=== PATIENT | female | born 2000 | race Caucasian/White ===

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

== ENCOUNTER 2022-12-23 18:28 | Emergency (ER) | payer OTHER, SELFPAY ==
[2022-12-23 19:41] VITALS: BP 130/67; PULSE 84; RESP 16; TEMP 36.9; O2SAT 95; BMI 24.9
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
== END 2022-12-23 19:54 | disposition home or self-care (01) ==
LOC: HO.ED 19:54
PROVIDERS: Emergency Provider Internal Medicine
DX: T24.011A Burn of unspecified degree of right thigh, initial encounter (principal); T22.031A Burn of unspecified degree of right upper arm, initial encounter; W86.0XXA Exposure to domestic wiring and appliances, initial encounter; Y93.9 Activity, unspecified; Y92.9 Unspecified place or not applicable; Y99.9 Unspecified external cause status
CPT/HCPCS: 99282; 99283

== ENCOUNTER 2023-08-24 13:28 | Emergency (ER) | payer OTHER, SELFPAY ==
--- NOTE | ~2023-08-24 | XR_ITS ---
EXAMINATION:XR ankle RT min 3V, XR foot RT min 3V VIEWS ACQUIRED: Frontal lateral and oblique right foot, 2 views ankle frontal and lateral CLINICAL INFORMATION: Reason for Exam pain s/p fall COMPARISON: None available at the time of this dictation. FINDINGS: There is no evidence of acute fracture or dislocation. Intertarsal, tarsometatarsal, metatarsophalangeal and interphalangeal joints are intact. Surrounding soft tissues is normal. , Ankle mortise is preserved. Talar dome is intact. Soft tissue unremarkable. XR/XR ankle RT min 3V IMPRESSION: No radiographic evidence of acute fracture. No fracture or dislocation.
--- NOTE | ~2023-08-24 | XR_ITS ---
EXAMINATION:XR ankle RT min 3V, XR foot RT min 3V VIEWS ACQUIRED: Frontal lateral and oblique right foot, 2 views ankle frontal and lateral CLINICAL INFORMATION: Reason for Exam pain s/p fall COMPARISON: None available at the time of this dictation. FINDINGS: There is no evidence of acute fracture or dislocation. Intertarsal, tarsometatarsal, metatarsophalangeal and interphalangeal joints are intact. Surrounding soft tissues is normal. , Ankle mortise is preserved. Talar dome is intact. Soft tissue unremarkable. XR/XR foot RT min 3V IMPRESSION: No radiographic evidence of acute fracture. No fracture or dislocation.
[2023-08-24 13:36] VITALS: BP 137/82; PULSE 108; RESP 20; TEMP 36.7; O2SAT 97; BMI 25.7
--- NOTE | 2023-08-24 14:52 | ED_ITS ---
HPI - Extremity Injury (Lower) General Chief Complaint: Extremity Injury, Lower Stated Complaint: R foot inj Time Seen by Provider: 08/24/23 13:41 Source: patient, family and RN notes reviewed Mode of arrival: ambulatory Limitations: no limitations History of Present Illness HPI Narrative: this is a 23-year-old female presenting to the emergency department for evaluation of left ankle and foot pain since last night. Patient states that she tripped and fell down a step outdoors last night. Denies hitting her head or loss of consciousness. She was able to weight bear on her leg. Patient states that this morning she woke up with increased pain and unable to fully apply weight on her right foot secondary to pain. She is up-to-date with all of her vaccines. Denies taking any medications at home to treat occurred symptoms. No other complaints or concerns. MD complaint: ankle injury, foot injury and fall Onset (ago): day(s) Place: home Severity: moderate Relieving factors: nothing Exacerbating factors: nothing Context: fall Associated symptoms: able to partially bear weight Other symptoms: none Related Data Previous Rx's Medication Instructions Recorded bacitracin zinc 500 unit/gram 1 appl topical TID #14 grams 12/23/22 topical ointment (Antibiotic (bacitracin zinc)) cephalexin 250 mg capsule 250 mg PO QID 5 days #20 caps 08/24/23 ibuprofen 600 mg tablet 600 mg PO Q6H PRN fever or pain 08/24/23 #45 tabs Allergies Allergy/AdvReac Type Severity Reaction Status Date / Time No Known Allergies Allergy Unverified 06/22/20 17:01 Review of Systems Review of Systems: Yes all other systems are reviewed and are negative [facility] Past Medical History Attestation statement: The following information was validated with the patient. Social History Social History Advance Directives: No Advance Directives Information Provided: No Physical Exam Vital Signs: Vital Signs: Last Vital Signs Temp 98.0 F 08/24/23 13:36 Pulse 108 H 08/24/23 13:36 Resp 20 08/24/23 13:36 BP 137/82 08/24/23 13:36 Pulse Ox 97 08/24/23 13:36 O2 Del Method Room Air 08/24/23 13:36 BMI result Body Mass Index 25.7 Const: Other: General: Awake, alert, and oriented X3. No acute distress. HEENT: Normal inspection CVS: Normal heart rate and rhythm. Pulses normal. Respiratory: No respiratory distress Skin: Warm, dry, no rashes noted to exposed skin. Normal skin color. Normal skin turgor. Extremities: Right ankle with tenderness to palpation along the posterior ankle. no tenderness palpation along the lateral or medial mallelous. DP pulse 2 + capillary refill less than 2 seconds. there is a 3 cm laceration with dried blood noted. no surrounding erythema or warmth. Achilles tendon intact. Neuro: Oriented X 3. No motor deficit. No sensory deficit. Course Reevaluation(s) Reevaluation #1: X-rays negative for acute bony abnormalities. Wound cleansed with Betadine and saline. Time: 15:49 Reevaluation #2: wound cleansed with 7 4-0 nylon sutures. Patient tolerated procedure well, see procedure note for further detail. Patient given 1st dose of antibiotic in department. Patient given crutches and given return precautions. Patient stable for discharge. Time: 20:01 Medications Administered Discontinued Medications Generic Name Dose Route Start Last Admin Trade Name Freq PRN Reason Stop Dose Admin Bacitracin 1 appl 08/24/23 19:33 08/24/23 19:38 Bacitracin Oint 0.9 Gm Packet TOPICAL 08/24/23 19:34 1 appl ONCE ONE Administration Protocol Cephalexin HCl 250 mg 08/24/23 19:33 08/24/23 19:38 Cephalexin 250 Mg Capsule PO 08/24/23 19:34 250 mg ONCE ONE Administration Ibuprofen 600 mg 08/24/23 14:41 08/24/23 14:53 Ibuprofen 600 Mg Tablet PO 08/24/23 14:42 600 mg ONCE ONE Administration Lidocaine HCl 5 ml 08/24/23 16:17 08/24/23 16:29 Lidocaine Hcl 1 % Mpf 5 Ml Vial INFILTRATI 08/24/23 16:18 Not Given ONCE ONE Medical Decision Making Medical Decision Making MDM Narrative: 23-year-old female presenting to the emergency department for evaluation of right ankle and right foot pain since last night. On arrival, vital signs within normal limits. Patient with tenderness palpation along the posterior aspect of her right ankle. X-rays of the right foot and ankle ordered. Patient medicated with ibuprofen 600 mg by mouth p.o. Differential Diagnosis Differential Diagnoses: The differential diagnosis associated with the presentation includes strain, sprain, contusion, fx, laceration Radiology Impression Discussion of test interpretation with radiology: I have reviewed the radiologist's reading. Radiologist Impression: [id number] [place] [id number] XRay Report Signed Patient: Brigitte Goss MR#: [id number] : 2000 Acct:[id number] Age/Sex: 23 / F ADM Date: 08/24/23 Loc: HO.ED Attending Dr: Ordering Physician: Sparkle Cam Date of Service: 08/24/23 Procedure(s): XR foot RT min 3V Accession Number(s): [id number] cc: Sparkle Cam; Physician,None ~ EXAMINATION:XR ankle RT min 3V, XR foot RT min 3V VIEWS ACQUIRED: Frontal lateral and oblique right foot, 2 views ankle frontal and lateral CLINICAL INFORMATION: Reason for Exam pain s/p fall COMPARISON: None available at the time of this dictation. FINDINGS: There is no evidence of acute fracture or dislocation. Intertarsal, tarsometatarsal, metatarsophalangeal and interphalangeal joints are intact. Surrounding soft tissues is normal. , Ankle mortise is preserved. Talar dome is intact. Soft tissue unremarkable. XR/XR foot RT min 3V IMPRESSION: No radiographic evidence of acute fracture. No fracture or dislocation. Dictated By: Graeme Tadeo MD Procedures Laceration Laceration 1: Site: lower extremity Side (If applicable): right Size (cm): 3 Description: linear and irregular Depth: simple, single layer Local Anesthetic: lidocaine 1% Amount of anesthesia used (mL): 4 Pre-repair: wound explored, irrigated extensively and deep structures intact Skin layer closed with: nylon Size (cm): 4-0 Number of sutures: 7 Technique: simple, interrupted Discharge Plan Discharge Clinical Impression: Ankle sprain, Laceration of ankle Patient Disposition: Home, Self-Care Instructions: Ankle Sprain (ED) Additional Instructions: You were seen in the emergency department after injuring your ankle and foot. your x-rays did not show any broken bones. We had placed 7 sutures in your heel. Please have these removed in 8-10 days. Please take prescribed antibiotic to prevent infection. Finish the entire course. You may get wound wet, do not submerge wound (bathing, hot tubs, pools) until wound is fully closed. Rest, ice, elevate your ankle and foot for pain relief. Watch for any signs of infection - increased redness, fevers, drainage. If any of these occur, please return for re-evaluation. Prescriptions: New cephalexin 250 mg capsule 250 mg PO QID 5 Days Qty: 20 0RF ibuprofen 600 mg tablet 600 mg PO Q6H PRN (Reason: fever or pain) Qty: 45 0RF No Action bacitracin zinc [Antibiotic (bacitracin zinc)] 500 unit/gram ointment 1 appl topical TID Qty: 14 0RF Stand Alone Forms: Work/School Release Interventions: ED Discharge Assessment Last Done: 08/24/23 19:57 Discharge Date/Time: 08/24/23 19:58
[2023-08-24] MEDS: Ibuprofen 600 MG TABLET PO (14:53)
[2023-08-24] MEDS: cephALEXin 250 MG CAPSULE PO (19:38)
[2023-08-24] MEDS: Bacitracin Oint 0.9 GM PACKET 1 APPL TOPICAL (19:38)
== END 2023-08-24 19:58 | disposition home or self-care (01) ==
PROVIDERS: Emergency Provider Student in an Organized Health Care Education/Training Program
DX: S93.401A Sprain of unspecified ligament of right ankle, initial encounter (principal); S81.811A Laceration without foreign body, right lower leg, initial encounter; W01.0XXA Fall on same level from slipping, tripping and stumbling without subsequent striking against object, initial encounter; Y93.9 Activity, unspecified; Y92.9 Unspecified place or not applicable; Y99.9 Unspecified external cause status
CPT/HCPCS: 12002; 73610; 73630; 99283; 99284

== ENCOUNTER 2023-09-12 06:40 | Emergency (ER) | payer OTHER, SELFPAY ==
--- NOTE | 2023-09-12 06:49 | ED_ITS ---
HPI - General Adult General Chief complaint: Wound/Laceration Stated complaint: stiches needed Time Seen by Provider: 09/12/23 06:49 Source: patient Mode of arrival: ambulatory Limitations: no limitations History of Present Illness HPI narrative: Patient is a 23 year old assigned female at with no reported medical history presenting to the emergency department today for suture removal. Patient states that on the patient had 7 sutures placed in her left ankle and she is here to have them removed. Patient denies any dizziness, lightheadedness, abdominal pain, nausea, vomiting, fever, chills, blurry vision, double vision, loss of vision, chest pain, difficulty breathing, shortness of breath, back pain, night sweats, pain with urination, increased urinary frequency, increased urinary urgency, blood in her urine or stool, syncope or a near syncopal episode, bowel incontinence, bladder incontinence, bowel retention, bladder retention, or any other complaints at this time. Relieving factors: none Exacerbating factors: none Associated symptoms: denies other symptoms Treatments prior to arrival: none Related Data Previous Rx's Medication Instructions Recorded bacitracin zinc 500 unit/gram 1 appl topical TID #14 grams 12/23/22 topical ointment (Antibiotic (bacitracin zinc)) cephalexin 250 mg capsule 250 mg PO QID 5 days #20 caps 08/24/23 ibuprofen 600 mg tablet 600 mg PO Q6H PRN fever or pain 08/24/23 #45 tabs Allergies Allergy/AdvReac Type Severity Reaction Status Date / Time No Known Allergies Allergy Unverified 06/22/20 17:01 Review of Systems Constitutional: Constitutional: Reports no additional constitutional complaints, Denies chills, Denies fever(s) and Denies night sweats Eyes: Eyes: Reports no additional eye complaints, Denies blurry vision, Denies change in vision, Denies diplopia, Denies eye discharge, Denies loss of vision and Denies eye pain ENT: Denies dizziness Cardiovascular: Cardiovascular: Reports no additional cardiovascular complaints, Denies chest pain, Denies lightheadedness, Denies Loss of Consciousness and Denies dyspnea Respiratory: Respiratory: Reports no additional respiratory complaints and Denies dyspnea Gastrointestinal: Gastrointestinal: Reports no additional gastrointestinal complaints, Denies abdominal pain, Denies melena, Denies hematochezia, Denies change in bowel habits and Denies change in stool character Genitourinary: Genitourinary: Denies hematuria, Denies urinary frequency, Denies dysuria, Denies urinary incontinence, Denies urinary hesitancy and Denies urinary urgency Musculoskeletal: Musculoskeletal: Reports no additional musculoskeletal complaints, Denies numbness and Denies tingling Comments: [address] in the left heel Neurologic: Denies dizziness, Denies loss of vision, Denies numbness and Denies tingling Psychiatric: Psychiatric: Reports no additional psychiatric complaints Endocrine: Endocrine: Reports no additional endocrine complaints Hematologic/Lymphatic: Hematologic/Lymphatic: Reports no additional hematologic/lymphatic complaints Allergic/Immunologic: Allergic/Immunologic: Reports no additional allergic/immunologic complaints PMFSH Past Medical History Attestation statement: The following information was validated with the patient. Source: old records reviewed and nursing notes reviewed Social History Social History Advance Directives: No Physical Exam ED Const General: cooperative, no acute distress, alert and awake Nutritional Appearance: well nourished Orientation/consciousness: patient oriented x3 Limitations: no limitations HENMT Head: Yes normal to inspection and Yes atraumatic Ears: hearing grossly normal bilaterally and external ears normal General nose exam: Normal external nose present, no nasal discharge noted and no epistaxis Face and sinus: Yes normal facial exam, No abrasion and No laceration Mouth: Normal oral and palatal mucosa present, no drooling and no muffled voice Eyes General: appearance normal, both eyes and all related structures Periorbital: periorbital findings normal Eyelids: Yes eyelids normal Conjunctivae: conjunctivae normal Pupils: Equal, round and reactive pupils present EOM: EOMs intact bilaterally Neck Neck: Yes normal visual inspection, Yes full ROM and Yes no lymphadenopathy Chest Chest palpation & inspection: normal inspection of the chest Resp Effort & Inspection: normal respiratory effort and able to speak in complete sentences GI Inspection: Yes normal to inspection Neuro General: patient oriented x3 and moves all extremities Cranial nerves: Yes Equal, round and reactive pupils present Cognition (Neuro): normal cognition Motor exam (neuro): 5/5 motor strength present throughout Sensory Exam: Normal double simultaneous stimulation for sensation Coordination: [id number] test normal Extrem Other: [address] in a well healed and closed wound to the left heel General: Yes full ROM and Yes capillary refill normal Psych Appearance: grossly normal Mental Status: mental status grossly normal Affect: normal affect Attitude: cooperative Thought process: Normal thought process present Thought content: Normal thought content present Insight: Good insight present (Psych) Procedures Procedure Narrative Procedure Narrative: 7 sutures removed from the left heel, without incident. Medical Decision Making Medical Decision Making MDM Narrative: Patient is a 23 year old assigned female at with no reported medical history presenting to the emergency department today for suture removal. Patient's physical exam was as noted in the physical exam portion of this note. I explained my physical exam findings to the patient. I answered all questions asked by the patient. I stressed the importance of the patient taking her medication as prescribed. I stressed the importance of the patient following up with her primary care provider. I stressed the importance of the patient returning to the emergency department immediately if her symptoms were to worsen or if she were to develop any dizziness, shortness of breath, difficulty breathing, chest pain, blurry vision, loss of vision, nausea, vomiting, abdominal pain, fever, chills, back pain, or any other complaints. Patient verbalized agreement and understanding with this treatment plan and discharge. Differential Diagnosis Differential Diagnoses: The differential diagnosis associated with the presentation includes Suture removal Discharge Plan Discharge Clinical Impression: Encounter for removal of sutures Patient Disposition: Home, Self-Care Instructions: Stitches Removal (ED) Additional Instructions: Follow up with your primary care provider. Return to the emergency department immediately if you develop any drainage from the wound, redness around the wound, dizziness, shortness of breath, difficulty breathing, chest pain, blurry vision, loss of vision, nausea, vomiting, abdominal pain, fever, chills, back pain, or any other complaints. Prescriptions: No Action bacitracin zinc [Antibiotic (bacitracin zinc)] 500 unit/gram ointment 1 appl topical TID Qty: 14 0RF cephalexin 250 mg capsule 250 mg PO QID 5 Days Qty: 20 0RF ibuprofen 600 mg tablet 600 mg PO Q6H PRN (Reason: fever or pain) Qty: 45 0RF Referrals: [facility] Family [facility] [Provider Group] (Call to establish and follow up with a primary care provider. If you already have a primary care provider, please follow up with them.) [facility], [place] [Provider Group] (Call to establish and follow up with a primary care provider. If you already have a primary care provider, please follow up with them.) [facility] [Provider Group] (Call to establish and follow up with a primary care provider. If you already have a primary care provider, please follow up with them.) Interventions: ED Discharge Assessment Last Done: 09/12/23 07:24 Discharge Date/Time: 09/12/23 07:25 Print Language: French
== END 2023-09-12 07:25 | disposition home or self-care (01) ==
PROVIDERS: Emergency Provider Emergency Medicine
DX: Z48.02 Encounter for removal of sutures (principal)

== ENCOUNTER 2025-09-09 17:17 | Outpatient (REF) | payer OTHER, SELFPAY ==
--- OUTSIDE RECORDS SUMMARY | 2025-09-09 13:00 | XMS_ITS | Encounter Summary ---
Author Organization [employer] Address [address] [facility] [address] [place] [address] Care Team Providers Care Battery Plate Remover Name Role Phone Nieves Vance NP Primary Care Provider [phone] Reason for Referral * Consultation (Routine) - Authorized Specialty Diagnoses / Procedures Referred By Bryan warner Referred To Contact Dental Tire Builder Operator / Dentistry Diagnoses Routine general medical examination at a health care facility Nieves Vance NP [address] [place] [address] Phone: tel: fax: Referral ID Status Reason Start Date Expiration Date Visits Requested Visits Authorized [id number] Authorized Consult and Treat 09/09/2025 09/09/2026 1 1 Reason for Visit * Reason Comments New patient Encounter Details Date Type Department Care Team (Late st Contact Info) Description 09/09/2025 1:00 PM EST Office Visit [facility] [address] [place], [place] [phone] Nieves Vance NP [address] [place], [place] [phone] Routine general medical examination at a health care facility (Primary Dx); BMI 32.0-32.9,adult; Dietary counseling; Exercise counseling; HSV (herpes simplex virus) infection Social History Tobacco Use Types Packs/Day Years Used Date Smoking Tobacco: Some Days Cigarettes Tobacco Cessation:Ready to Q uit: Not Asked; Counseling Given: Not Answered Depression Answer Date Recorded Patient Health Questionnaire-9 Score 9 09/09/2025 Patient Health Questionnaire-9 Score 9 09/09/2025 Last PHQ-9: Questionnaire Data Not on file 1 11/10/2024 Housing Stability Answer Date Recorded What is your housing situation today? I have [employer] 09/09/[address] you li ve. Do you have problems with any of the following? None of the above 09/09/2025 Food Insecurity Answer Date Recorded Within the past 12 months, y ou worried that your food would run out before you got money to buy more: Never True 09/09/2025 Within the past 12 months,th e food you bought just didn't last and you didn't have enough money to get more: Never True 02/2025 Transportation Answer Date Recorded In the past 12 months, has l ack of transportation kept you from medical appts, meetings, work or from getting things needed for daily living? No 09/09/2025 Utilities Answer Date Recorded In the past 12 months, has t he electric, gas, oil or water company threatened to shut off services in your home? No 09/09/2025 Depression Answer Date Recorded Patient Health Questionnaire-2 Score 2 09/09/2025 Internet Access Answer Date Recorded Internet Access Q1 Yes 09/09/2025 Internet Access Q2 Not on file 09/09/2025 Comments Unknown Sex and Gender Information Value Date Recorded Sex Assigned at Female 05/20/2025 10:37 AM EDT Legal Sex Female 1:53 PM EDT Gender Identity Female 05/20/2025 10:37 AM EDT Sexual Orientation Straight 05/20/2025 10 :37 AM EDT documented as of this encounter Last Filed Vital Signs Vital Sign Reading Time Taken Comments Blood Pressure 124/86 09/09/2025 1:14 PM EST Pulse 82 09/09/2025 1:14 PM EST Temperature 36.8 C (98.2 F) 09/09/2025 1:14 PM EST Respiratory Rate 20 09/09/2025 1:14 PM EST Oxygen Saturation 98% 09/09/2025 1:14 PM EST Inhaled Oxygen Concentration - - Weight 86 kg (189 lb 9.6 oz) 09/09/2025 1:14 PM EST Height 162.6 cm (5' 4 ) 09/09/2025 1:14 PM EST Body Mass Index 32.54 09/09/2025 1:14 PM EST documented in this encounter Functional Status * Over the past 2 weeks, how often have you been bothered by any of the following problems? Question Answer Date of Assessment Author Patient Health Questionnaire -2 Score 2 09/09/2025 2:53 PM EST Fei Giordano [place] * Little interest or pleasure in doing things Answer Date of Assessment Author Several days 09/09/2025 2:53 PM EST Fei Giordano MA * Feeling down, depressed, or hopeless Answer Date of Assessment Author Several days 09/09/2025 2:53 PM EST Fei Giordano MA * Trouble falling or staying asleep, or sleeping too much Answer Date of Assessment Author Nearly every day 09/09/2025 2:53 PM EST Fei Giordano MA * Feeling tired or having little energy Answer Date of Assessment Author More than half the days 09/09/2025 2:53 PM EST Fei Blair MA * Poor appetite or overeating Answer Date of Assessment Author Not at all 09/09/2025 2:53 PM EST Fei Giordano MA * Feeling bad about yourself - or that you are a failure or have let yourself or your family down Answer Date of Assessment Author Several days 09/09/2025 2:53 PM EST Fei Giordano MA * Trouble concentrating on things, such as reading the newspaper or watching television Answer Date of Assessment Author Several days 09/09/2025 2:53 PM Fei Tom MA * Moving or speaking so slowly that other people could have noticed? Or the opposite - being so fidgety or restless that you have been moving around a lot more than usual. Answer Date of Assessment Author Not at all 09/09/2025 2:53 PM EST Fei Giordano MA * Thoughts that you would be better off or hurting yourself in some way Answer Date of Assessment Author Not at all 09/09/2025 2:53 PM Fei Tom MA * Patient Health Questionnaire-9 Score Answer Date of Assessment Author 9 09/09/2025 2:53 PM EST Fei Giordano MA * Over the last 2 weeks, how often have you been bothered by any of the following problems? Question Answer Date of Assessment Author Feeling nervous, anxious, or on edge 3 09/09/2025 2:54 PM EST Fei Giordano MA Not being able to stop or co ntrol worrying 3 09/09/2025 2:54 PM EST Fei Giordano MA Worrying too much about diff erent things 3 09/09/2025 2:54 PM EST Fei Giordano MA Trouble relaxing 3 09/09/2025 2:54 PM EST Fei Blair MA Being so restless that it is hard to sit still 2 09/09/2025 2:54 PM EST Fei Giordano MA Becoming easily annoyed or irritable 2 09/09/2025 2:54 PM EST Fei Giordano MA Feeling afraid as if somethi ng awful might happen 3 09/09/2025 2:54 PM EST Fei Giordano MA ALEX-7 Total Score 19 09/09/2025 2:54 PM EST Fei Giordano MA * How difficult have these problems made it for you to do your work, take care of things at home, or get along with other people? Answer Date of Assessment Author Somewhat difficult 09/09/2025 2:53 PM EST Fei Mcdonald MA documented as of this encounter Progress Notes * Nieves Vance NP - 09/09/2025 1:00 PM EST Subjective: Brigitte Goss is a 25 y.o. female who presents to the office for a new patient visit. Brigitte Goss, 25-year-old female - Symptoms started approximately 2.5 weeks ago: body aches, headaches, sore throat, increased urination - Bed bound due to severity of symptoms during the past weekend (September 06-2024) - Headaches and sore throat persisted as of September 08, 2025 - Visited urgent care last week for evaluation; underwent strep and COVID testing - Symptoms have remained stable, with gradual improvement - Reports mood fluctuations with periods of feeling very high or very low, occasional feelings of being down, and possible anxiety - Difficulty losing weight despite previous attempts with exercise - Last menstrual period August 13, 2025 - Sexually active, had unprotected intercourse on August 27, 2025 - Took Plan B on September 03, 2025 (7 days after intercourse) Problem List[1] Surgical History[2] Family History[3] Social History Living situation: lives with dad 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 Allergies[4] Review of Systems Constitutional: Negative for fever. HENT: Positive for congestion. Respiratory: Negative for apnea, chest tightness, shortness of breath and stridor. Cardiovascular: Negative for chest pain and leg swelling. Gastrointestinal: Negative for abdominal distention and abdominal pain. Endocrine: Negative for cold intolerance and heat intolerance. Genitourinary: Negative for difficulty urinating and dyspareunia. Musculoskeletal: Negative for arthralgias and back pain. Neurological: Positive for headaches. Hematological: Negative for adenopathy. Psychiatric/Behavioral: Negative for agitation. Vitals: 09/09/25 1314 BP: 124/86 BP Location: Right arm Patient Position: Sitting BP Cuff Size: Large adult Pulse: 82 Resp: 20 Temp: 98.2 ??F (36.8 ??C) TempSrc: Oral SpO2: 98% Weight: 189 lb 9.6 oz (86 kg) Height: 5' 4 (1.626 m) Physical Exam Vitals reviewed. Constitutional: Appearance: She is obese. HENT: Head: Normocephalic and atraumatic. Nose: Nose normal. Eyes: Conjunctiva/sclera: Conjunctivae normal. Cardiovascular: Rate and Rhythm: Normal rate and regular rhythm. Pulmonary: Effort: Pulmonary effort is normal. Breath sounds: Normal breath sounds. Musculoskeletal: Cervical back: Normal range of motion and neck supple. Neurological: General: No focal deficit present. Mental Status: She is alert. - HEENT: No signs of otitis, throat examination performed, no specific abnormalities noted. - LUNGS: Clear breath sounds. Assessment & Plan Routine general medical examination at a health care facility Orders: Chlamydia/N. Gonorrhoeae, PCR, Urine hCG, Total, Quantitative; Future Hemoglobin A1c; Future Referral to [facility] Dental Adult; Future POCT Urine BMI 32.0-32.9,adult Orders: Comprehensive Metabolic Panel; Future Hemoglobin A1c; Future Hemoglobin A1c; Future Dietary counseling Exercise counseling HSV (herpes simplex virus) infection Assessment & Plan Routine general medical examination at a [facility]: - General medical evaluation performed. - Follow-up visit scheduled in 2 to 3 months to monitor health status. BMI 32.0-32.9, adult: - Elevated BMI noted. - Recommended weight loss through natural methods. Advised to minimize alcohol intake and consume healthy foods. Referral to horticultural therapist offered if difficulty with weight loss persists. Discussion of possible weight loss medications if eligible in future visits. - Risks and side effects: Medicines for weight loss discussed as having potential side effects. Dietary counseling: - Dietary habits reviewed. - Recommended increased intake of fruits, vegetables, and lean proteins. Advised to minimize sugarsand avoid fried foods. No formal diet prescribed. Exercise counseling: - Exercise habits reviewed. - Encouraged regular physical activity as part of overall health and mental well-being. Mood symptoms and anxiety: - Mood fluctuations and anxiety discussed. No formal diagnosis made. Medicine as a potential optiondiscussed. - Advised regular exercise, healthy diet, and adequate sleep to support mental health. Offered future discussion regarding medication if symptoms persist or worsen. Follow-up visit scheduled in 2 to 3 months to reassess mood and anxiety. - Risks and side effects: Medicines for mood symptoms discussed as having potential side effects. Acute viral illness: - Symptoms consistent with viral illness. Headaches attributed to current illness. - Ordered blood work. Recommended supportive care. No specific antiviral therapy indicated. Sexual health and contraception: - Sexually active without contraception. Plan B use discussed. No current desire for . - Sent prescription for Plan B for future use. Advised correct timing of Plan B administration within 3 days of unprotected intercourse. Offered discussion of other contraceptive options including IUD, Nexplanon, Depo. Ordered urine test and blood test. Ordered gonorrhea and chlamydia screening. - Risks and side effects: Plan B discussed as not fully reliable and may cause hormonal side effects if used outside recommended window. Dental care: - Need for dental care identified. - Referral to dentist placed. Prescription - Plan B emergency contraception for future use; take as soon as possible within 3 days after unprotected intercourse; not intended for routine contraception; may cause hormonal side effects. Appointments - Follow-up appointment in 2 months for assessment of mental health, weight management, and lab results - Referral to dentist (appointment to be scheduled) Routine Screening and Health Maintenance Optometry: No Dentist: Yes Office Visit on 09/09/2025 Component Date Value Ref Range Status Preg Test, Ur 09/09/2025 Negative Negative, Indeterminate, None Detected, Trace, 3+, Specimen unsatisfactory for evaluation, Weakly Positive, 1+, 2+ Final QC Media Lot # 09/09/2025 [id number] Final Lot# Expiration Date 09/09/2025 13,127 Final Routine Cancer Screening Cervical CA: tapestry Current Medications[5] There is no immunization history on file for this patient. This note was drafted using [employer] ([employer]) technology. The patient/patient's guardian has been informed and has consented to the use of this technology: Yes Based on our discussion, I have outlined the following instructions for you: - Try to lose weight naturally by eating healthy foods and drinking less alcohol. - Eat more fruits, vegetables, and lean proteins, and try to eat less sugar and avoid fried foods. - If you have trouble losing weight, you can ask for a referral to a horticultural therapist. - Exercise regularly, eat healthy, and get enough sleep to help your overall health and mood. - If your mood symptoms or anxiety do not get better or get worse, you can discuss medication options at your next visit. - Take care of yourself with rest, fluids, and other supportive measures while you recover from your illness. - You have a prescription for Plan B emergency contraception for future use. If you have unprotected sex, take Plan B as soon as possible, within 3 days. - If you want to talk about other control options, you can ask about intrauterine device, Nexplanon, or Depo at your next visit. - You will have urine and blood tests, and tests for gonorrhea and chlamydia. - You have been referred to a dentist for dental care. Next appointment(s): - Follow-up appointment in 2 months for assessment of mental health, weight management, and lab results - Referral to dentist (appointment to be scheduled) Thank you again for your visit, and we look forward to supporting you in your journey to better health. [1] Patient Active Problem List Diagnosis BMI 32.0-32.9,adult Routine general medical examination at a health care facility Dietary counseling Exercise counseling HSV (herpes simplex virus) infection [2] No past surgical history on file. [3] No family history on file. [4] No Known Allergies [5] Current Outpatient Medications Medication Sig Dispense Refill levonorgestrel (Plan B) 1.5 MG tablet Take 0.5 tablets (0.75 mg) by mouth every 12 (twelve) hours for 1 day. 1 tablet 0 valACYclovir (Valtrex) 500 MG tablet Take 1 tablet (500 mg) by mouth 2 times daily for 9 days. 18 tablet 0 No current facility-administered medications for this visit. documented in this encounter Miscellaneous Notes * Assessment & Plan Note - Nieves Vance NP - 09/09/2025 1:00 PM ESTAssociated Problem(s): Routine general medical examination at a health care facility Orders: Chlamydia/N. Gonorrhoeae, PCR, Urine hCG, Total, Quantitative; Future Hemoglobin A1c; Future Referral to [facility] Dental Adult; Future POCT Urine * Assessment & Plan Note - Nieves Vance NP - 09/09/2025 1:00 PM ESTAssociated Problem(s): BMI 32.0-32.9,adult Orders: Comprehensive Metabolic Panel; Future Hemoglobin A1c; Future Hemoglobin A1c; Future * Assessment & Plan Note - Nieves Vance NP - 09/09/2025 1:00 PM ESTAssociated Problem(s): Dietary counseling * Assessment & Plan Note - Nieves Vance NP - 09/09/2025 1:00 PM ESTAssociated Problem(s): Exercise counseling * Assessment & Plan Note - Nieves Vance NP - 09/09/2025 1:00 PM ESTAssociated Problem(s): HSV (herpes simplex virus) infection documented in this encounter Plan of Treatment Upcoming Encounters Date Type Department Care Team (Late st Contact Info) Description 11/22/2025 1:45 PM EST Office Visit [facility] [address] [place] [address] Nieves Vance NP [address] [place] [address] Scheduled Orders Name Type Priority Associated Diagnoses Orde r Schedule Chlamydia/N. Gonorrhoeae, PCR, Urine Lab Routine Routine general medical examination at a health care facility Ordered: 09/09/2025 Comprehensive Metabolic Panel Lab Routine BMI 32.0-32.9,adult Expected: 09/09/2025 (Approximate), Expires: 09/09/2026 Hemoglobin A1c Lab Routine BMI 32.0-32.9,adult Expected: 09/09/2025 (Approximate), Expires: 09/09/2026 hCG, Total, Quantitative Lab Routine Routine general medical examination at a health care facility Expected: 09/09/2025 (Approximate), Expires: 09/09/2026 Hemoglobin A1c Lab Routine Routine general medical examination at a [facility] care [facility] BMI 32.0-32.9,adult Expected: 09/09/2025 (Approximate), Expires: 09/09/2026 Scheduled Referrals Name Type Priority Associated Diagnoses Orde r Schedule Referral to [facility] Dental Adult Outpatient Referral Routine Routine general medical examination at a [facility] facility Expected: 09/09/2025 (Approximate), Expires: 09/09/2026 documented as of this encounter Procedures Procedure Name Priority Date/Time Associated Diagnosis Comments POCT , URINE Routine 09/09/2025 1:56 PM EST Routine general medical examination at a [facility] facility documented in this encounter Results * POCT Urine (09/09/2025 1:56 PM EST) Preg Test, Ur Negative Negative, Indeterminate, None Detected, Trace, 3+, Specimen unsatisfactory for evaluation, Weakly Positive, 1+, 2+ QC Media Lot # [id number] Lot# Expiration Date Urine 09/09/2025 1:56 PM EST Nieves Vance NP POINT OF CARE TEST ENTER/EDIT OR DERABLES Final Result documented in this encounter Visit Diagnoses Diagnosis Routine general medical examination at a health care facility- Primary BMI 32.0-32.9,adult Dietary counseling Dietary surveillance and counseling Exercise counseling HSV (herpes simplex virus) infection Herpes simplex without mention of complication documented in this encounter Additional Health Concerns Assessment Noted Time PHQ-9 Depression Total Score: 9 09/09/20 2:53 PM EST documented as of this encounter Care Teams Battery Plate Remover Relationship Specialty Start Date End Date Nieves Vance NP [address] [place] [id number] PCP - General Family Medicine 09/09/25 documented as of this encounter
--- OUTSIDE RECORDS SUMMARY | 2025-09-09 19:59 | XMS_ITS | Encounter Summary ---
Author Organization [facility] Address [address] [place] [address] Phone Care Team Providers Care Stain Applicator Name Role Phone Sarahi Ibrahim MD Primary Care Provider [phone] Encounter Details Date Type Department Care Team (Late st Contact Info) Description 05/22/2017 Conversion Encounter [facility] [address] [place] [address] Social History Tobacco Use Types Packs/Day Years Used Date Smoking Tobacco: Never Comments:Never smoker Comments Unknown Sex and Gender Information Value Date Recorded Sex Assigned at Female 06/04/2019 2:40 PM EDT Legal Sex Female 5:05 PM EDT Gender Identity Female 06/04/2019 2:40 PM EDT Sexual Orientation Straight 06/04/2019 2: 40 PM EDT documented as of this encounter Plan of Treatment Not on file documented as of this encounter Visit Diagnoses Not on filedocumented in this encounter Care Teams Stain Applicator Relationship Specialty Start Date End Date Sarahi Ibrahim MD [address] [place] [address] PCP - General Pediatrics 06/06/18 03/25/23 documented as of this encounter
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
--- OUTSIDE RECORDS SUMMARY | 2025-09-09 19:59 | XMS_ITS | Encounter Summary ---
Author Organization [email or web address] Address [address] [place] [address] Care Team Providers Care Manganese Wheeler Name Role Phone Unavailable Primary Care Provider Unavailabl e Reason for Visit * Reason Onset Date Comments CHARTPREP 09/08/2025 Encounter Details Date Type Department Care Team (Late st Contact Info) Description 09/08/2025 Telephone [facility] [address] [place] [address] Fei Giordano MA CHARTPREP Social History Tobacco Use Types Packs/Day Years Used Date Smoking Tobacco: Never Assessed Depression Answer Date Recorded Patient Health Questionnaire-9 [...] AM EDT documented as of this encounter Miscellaneous Notes * Telephone Encounter - Fei Giordano MA - 09/08/2025 3:24 PM EST Chart Prep Labs: not applicable Images: not applicable Referrals: not applicable Vaccines due: Covid, Flu, and Tdap Screenings: pap smear, STI screening, and LMP,family planning,HIV screening,Hep C screening Overdue care gaps: SBIRT, SDOH, PHQ-9, ALEX-7, Oral health screening, Disability screen, and Tobacco documented in this encounter Plan of Treatment Upcoming Encounters Date Type Department Care Team (Late st Contact Info) Description 11/22/2025 1:45 PM EST Office Visit [facility] [address] [place] [address] Nieves Vance NP [address] [place] [address] documented as of this encounter Visit Diagnoses Not on filedocumented in this encounter
--- OUTSIDE RECORDS SUMMARY | 2025-09-09 19:59 | XMS_ITS | Clinical Summary ---
Author Organization [employer] Address [address] [place] [address] Care Team Providers Care General Expeditor Name Role Phone JacquelineNieves maynard SUSAN Primary Care Provider [phone] Allergies No known active allergies Medications levonorgestrel (Plan B) 1.5 MG tablet Take 0.5 tablets (0.75 mg) by mouth every 12 (twelve) hours for 1 day. 1 tablet 09/09/2025 Active valACYclovir (Valtrex) 500 MG tablet Take 1 tablet (500 mg) by mouth 2 times daily for 9 days. 18 tablet 09/09/2025 5 Active Active Problems Problem Noted Date Diagnosed Date BMI 32.0-32.9,adult 09/09/2025 Assessment & Plan (09/09/2025 3:59 PM EST): Orders: Comprehensive Metabolic Panel; Future Hemoglobin A1c; Future Hemoglobin A1c; Future Routine general medical exam ination at a health care facility 09/09/2025 Assessment & Plan (09/09/2025 3:59 PM EST): Orders: Chlamydia/N. Gonorrhoeae, PCR, Urine hCG, Total, Quantitative; Future Hemoglobin A1c; Future Referral to [facility] Dental Adult; Future POCT Urine Dietary counseling 09/09/2025 Assessment & Plan (09/09/2025 3:59 PM EST): Exercise counseling 09/09/2025 Assessment & Plan (09/09/2025 3:59 PM EST): HSV (herpes simplex virus) infection 09/09/2025 Assessment & Plan (09/09/2025 3:59 PM EST): Encounters Date Type Department Care Team Description 09/09/2025 1:00 PM EST Office Visit [facility] [address] [place] [address] Nieves Vance NP Routine general medical examination at a health care facility (Primary Dx); BMI 32.0-32.9,adult; Dietary counseling; Exercise counseling; HSV (herpes simplex virus) infection 09/09/2025 Travel 09/08/2025 Telephone [facility] [address] [place] [address] Fei Giordano MA CHARTPREP 08/30/2025 Patient Outreach [facility] PED[facility] [address] [place], [place] [phone] Nieves Vance NP Pre-visit Planning ([facility] unable to reach [facility] ) 06/29/2025 Telephone [facility] [address] [place] [address] Nicolas Bolivar MD from Last 3 Months Social History Tobacco Use Types Packs/Day Years [...] Orientation Straight 05/20/2025 10 :37 AM EDT Last Filed Vital Signs Vital Sign [...] Mass Index 32.54 09/09/2025 1:14 PM EST Plan of Treatment Upcoming Encounters Date Type Department Care Team (Late st Contact Info) Description 11/22/2025 1:45 PM EST Office Visit [facility] [address] [place] [address] Nieves Vance NP [address] [place] [address] Health Maintenance Due Date Last Done Comments HIV Screening 2002 Lipid Panel 2002 Family Planning (PISQ) 2017 Hepatitis C Screening 2020 Chlamydia and Gonorrhea Screening 06/04/2020 06/04/2019 Pneumococcal Vaccine: Pediatrics (0 to 5 Years) and At-Risk Patients (6 to 49) Years (1 of 2 - PCV) 2021 06/17/2003, 2002, 2002, Additional history exists Pap Smear 2023 DTaP/Tdap/Td Vaccines (7 - Td or Tdap) 05/11/2023 05/11/2013, 05/30/2006, 09/21/2003, Additional history exists COVID-19 Vaccine (3 - season) 2025 04/26/2021, 04/05/2021 Influenza Vaccine (#1) 2025 9, 09/02/2018, 07/17/2017, Additional history exists Depression Monitoring 2026 09/09/2025, 025 Alcohol/Substance Use Screening 09/09/2026 09/09/2025 Disability Screening 09/09/2026 09/09/2025 SDOH Screening 09/09/2026 09/09/2025 Tobacco Screening 09/09/2026 09/09/2025 Zoster Vaccines (1 of 2) 2052 RSV Patients and Patients Aged 60 years or older (1 - 1-dose 75+ series) 2077 Hepatitis B Vaccines Completed 2002, 2002, 2002 HIB Vaccines Completed 06/17/2003, 03/2002, 2002, Additional history exists IPV Vaccines Completed 05/30/2006, 04/2003, 2002, Additional history exists HPV Vaccines Completed 04/29/2014, 10/2012, 05/11/2013 Hepatitis A Vaccines Completed 05/04/2015, 04/29/20 14 Meningococcal Vaccine Completed 05/26/2018, 013 Meningococcal B Vaccine Completed 12/07/2019, 06/04 RSV under 20 months Aged Out No longe r eligible based on patient's age to complete this topic Rotavirus Vaccines Aged Out No longer eligible based on patient's age to complete this topic Procedures Procedure Name Priority Date/Time Associated Diagnosis Comments POCT , URINE Routine 09/09/2025 1:56 PM EST Routine general medical examination at a health care facility from Last 3 Months Results * POCT Urine (09/09/2025 1:56 PM EST) Preg Test, Ur Negative Negative, Indeterminate, None Detected, Trace, 3+, Specimen unsatisfactory for evaluation, Weakly Positive, 1+, 2+ QC Media Lot # [id number] Lot# Expiration Date Urine 09/09/2025 1:56 PM EST Nieves Vance NP POINT OF CARE TEST ENTER/EDIT OR DERABLES Final Result from Last 3 Months Insurance [facility] [employer] 3 Care Teams General Expeditor Relationship Specialty Start Date End Date Nieves Vance NP [address] [place] [address] PCP - General Family Medicine 09/09/25
--- OUTSIDE RECORDS SUMMARY | 2025-09-09 19:59 | XMS_ITS | Encounter Summary ---
Author Organization [employer] Address [address] [place] [address] Care Team Providers Care Manager Line Name Role Phone Nieves Vance SUSAN Primary Care Provider [phone] Encounter Details Date Type Department Care Team (Latest Contact Info) Description 09/09/2025 Travel Social History Tobacco Use Types Packs/Day Years Used Date Smoking Tobacco: Some Days Cigarettes Depression Answer Date Recorded Patient Health Questionnaire-9 [...] AM EDT documented as of this encounter Functional Status * Over the past 2 weeks, how often have you been bothered by any of the following problems? Question Answer Date of Assessment Author Patient Health Questionnaire -2 Score 2 09/09/2025 2:53 PM Fei Tom MA * Little interest or pleasure in doing things Answer Date of Assessment Author Several days 09/09/2025 2:53 PM Fei Tom MA * Feeling down, depressed, or hopeless Answer Date of Assessment Author Several days 09/09/2025 2:53 PM Fei Tom MA * Trouble falling or staying asleep, or sleeping too much Answer Date of Assessment Author Nearly every day 09/09/2025 2:53 PM Fei Tom MA * Feeling tired or having little energy Answer Date of Assessment Author More than half the days 09/09/2025 2:53 PM Fei Agustin MA * Poor appetite or overeating Answer Date of Assessment Author Not at all 09/09/2025 2:53 PM Fei Tom MA * Feeling bad about yourself - or that you are a failure or have let yourself or your family down Answer Date of Assessment Author Several days 09/09/2025 2:53 PM Fei Tom MA * Trouble concentrating on things, such [...] 09/09/2025 2:53 PM Fei Tom MA * Thoughts that you would be better off or hurting yourself in some way Answer Date of Assessment Author Not at all 09/09/2025 2:53 PM Fei Tom MA * Patient Health Questionnaire-9 Score Answer Date of Assessment Author 9 09/09/2025 2:53 PM Fei Tom MA * Over the last 2 weeks, [...] awful might happen 3 09/09/2025 2:54 PM Fei Tom MA ALEX-7 Total Score 19 09/09/2025 2:54 PM Fei Tom MA * How difficult have these problems made it for you to do your work, take care of things at home, or get along with other people? Answer Date of Assessment Author Somewhat difficult 09/09/2025 2:53 PM EST Fei Mcdonald MA documented as of this encounter Plan of Treatment Upcoming Encounters Date Type Department Care Team (Late st Contact Info) Description 11/22/2025 1:45 PM EST Office Visit [facility] [address] [place] [address] Nieves Vance NP [address] [place] [address] documented as of this encounter Visit Diagnoses Not on filedocumented in this encounter Additional Health Concerns Assessment Noted Time PHQ-9 Depression Total Score: 9 09/09/20 2:53 PM EST documented as of this encounter Care Teams Manager Line Relationship Specialty Start Date End Date Nieves Vance NP [address] [place] [phone] PCP - General Family Medicine 09/09/25 documented as of this encounter
--- OUTSIDE RECORDS SUMMARY | 2025-09-09 19:59 | XMS_ITS | Encounter Summary ---
Author Organization [facility] Address [address] [place] [address] Phone Care Team Providers Care Wireline Field Operator Name Role Phone Sarahi Ibrahim MD Primary Care Provider [phone] Encounter Details Date Type Department Care Team (Late st Contact Info) Description 11/18/2016 Documentation [facility] Family Medicine [address] [place], [place] [phone] Family Medicine, Physician [address], [place] [address] Social History Tobacco Use Types Packs/Day Years [...] on filedocumented in this encounter Care Teams Wireline Field Operator Relationship Specialty Start Date End Date Sarahi Ibrahim MD [address] [place] [address] PCP - General Pediatrics 06/06/18 03/25/23 documented as of this encounter
--- OUTSIDE RECORDS SUMMARY | 2025-09-09 19:59 | XMS_ITS | Encounter Summary ---
Author Organization [facility] Address [address] [place] [address] Phone Care Team Providers Care Retail Chain Store Area Supervisor Name Role Phone Sarahi Ibrahim MD Primary Care Provider [phone] Reason for Visit * Reason Comments Med Refill Encounter Details Date Type Department Care Team ([facility] st Contact Info) Description 07/08/2020 Refill [facility] [address] [place] [address] Sarahi Ibrahim MD [address] [place] [address] Exercise-induced asthma Social History Tobacco Use Types Packs/Day Years [...] documented as of this encounter Visit Diagnoses Diagnosis Exercise-induced asthma Exercise induced bronchospasm documented in this encounter Care Teams Retail Chain Store Area Supervisor Relationship Specialty Start Date End Date Sarahi Ibrahim MD [address] [place] [phone] PCP - General Pediatrics 06/06/18 03/25/23 documented as of this encounter
--- OUTSIDE RECORDS SUMMARY | 2025-09-09 19:59 | XMS_ITS | Clinical Summary ---
Author Organization [facility] Address [address] [place] [id number] Phone Care Team Providers Care Composition Weatherboard Applier Name Role Phone Unknown, Unknown MD Primary Care Provider Marcie jimenes Allergies No known active allergies Active Problems No known active problems Social History Tobacco Use Types Packs/Day Years Used Date Smoking Tobacco: Never Assessed Education Answer Date Recorded Are you interested in more education? Not on maritza e 09/19/2023 Are you concerned about learning? Not on file 09/19/2023 No 09/19/2023 No 09/19/2023 Digital Access Answer Date Recorded No 09/19/2023 No 09/19/2023 Reliable internet access at home? Not on file 09/19/2023 Device with a working camera? Not on file Comments Unknown Sex and Gender Information Value Date Recorded Sex Assigned at Not on file Legal Sex Female 5:52 PM EST Gender Identity Not on file Sexual Orientation Not on file Last Filed Vital Signs Vital Sign Reading Time Taken Comments Blood Pressure 125/84 09/19/2023 6:48 PM EST Pulse 82 09/19/2023 6:48 PM EST Temperature 36.4 C (97.5 F) 09/19/2023 6:48 PM EST Respiratory Rate 20 09/19/2023 6:48 PM EST Oxygen Saturation 96% 09/19/2023 6:48 PM EST Inhaled Oxygen Concentration - - Weight - - Height - - Body Mass Index - - Plan of Treatment Health Maintenance Due Date Last Done Comments Adult Td,Tdap Booster 2002 DEPRESSION SCREENING 2014 SMOKING Hx and SMOKELESS TOB ACCO SCREENING 2015 HPV VACCINES (1 - 3-dose series) 2017 CHLAMYDIA SCREENING 2018 MENINGOCOCCAL VACCINES (B) ( 1 of 2 - Standard) 2018 HEPATITIS C SCREENING 2020 HIV ONE-TIME SCREENING (18-6 5 YEARS) 2020 PAP SMEAR 2023 INFLUENZA VACCINE (#1) 2025 COVID-19 VACCINE (2024-2 6 season) 2025 HEPATITIS A VACCINES Aged Out No long er eligible based on patient's age to complete this topic HIB VACCINES Aged Out No longer eligi ble based on patient's age to complete this topic MENINGOCOCCAL VACCINES (ACWY) Aged Out No longer eligible based on patient's age to complete this topic PNEUMOCOCCAL VACCINES (0-49 years) Aged Out No longer eligible based on patient's age to complete this topic Medical Devices Not on file Insurance [facility] Care Teams Composition Weatherboard Applier Relationship Specialty Start Date End Date Unknown, Unknown, PCP - General 09/19/23 Additional Source Comments The information contained in this document represents components of the legal health record. It is not the complete legal health record.[facility]
--- OUTSIDE RECORDS SUMMARY | 2025-09-09 19:59 | XMS_ITS | Encounter Summary ---
Author Organization [facility] Address [address] [place] [address] Phone Care Team Providers Care Brand Lead Name Role Phone Sarahi Ibrahim MD Primary Care Provider [phone] Encounter Details Date Type Department Care Team (Late st Contact Info) Description 11/29/2016 Documentation [facility] [place] [address] [place], [place] [id number] Family Medicine, Physician [address] [place], [place] [address] Social History Tobacco Use Types Packs/Day Years [...] on filedocumented in this encounter Care Teams Brand Lead Relationship Specialty Start Date End Date Sarahi Ibrahim MD [address] [place] [address] PCP - General Pediatrics 06/06/18 03/25/23 documented as of this encounter
[2025-09-10 01:48] LABS: CT PCR Urine NOT DETECTED (Not Detect.); NG PCR Urine NOT DETECTED (Not Detect.)
== END 2025-09-09 17:18 | disposition home or self-care (01) ==
LOC: HO.HHCLNP 17:17
PROVIDERS: Visit Provider Nurse Practitioner Family
DX: Z20.2 Contact with and (suspected) exposure to infections with a predominantly sexual mode of transmission (principal)
CPT/HCPCS: 87491; 87591

== ENCOUNTER 2025-09-30 14:15 | Outpatient (REF) | payer OTHER, SELFPAY ==
--- OUTSIDE RECORDS SUMMARY | 2025-02-16 10:30 | XMS_ITS ---
Author Organization [facility] Address [address] [place] [address] Care Team Providers Care Competency Evaluated Nurse Aide Name Role Phone KATE SHELDON Unavailable [phone] REASON FOR VISIT Counseling/Testing Medications Medication SIG (Take, Route, Frequency, Duration) Notes Start Date End Date Status MetroGel-Vaginal 0.75 % Gel 1 applicatio n at bedtime Vaginal Once a day; Duration: 5 day(s) 12/29/2024 Active Aviane 0.1-20 MG-MCG Tablet 1 tablet Ora lly Once a day; Duration: 84 12/25/2024 Active Levonorgestrel 1.5 MG Tablet as directed Orally May take upto 5 days after sex as needed; Duration: 1 days Active valACYclovir HCl 1 GM Tablet 1 tablet Or ally Once a day for five days per episode; Duration: 5 days 12/25/2024 Active Plan B One-Step 1.5 MG Tablet 1 tablet Orally At once; Duration: 1 days 02/01/2025 Active Social History Sex Assigned At : Social History Observation Description Sex Assigned At Female Encounters Encounter Location Date Provider Diagnosis [facility] [address] [place], [place] [id number] KATE SHELDON Plan Of Treatment No Information Progress Notes * Brigitte GOSS MDOB:[birth year] (25 yo F)Acc No.[id number]:02/16/2025 Progress Notes Patient: Josephine sunnyBrigitte Provider: Jossy SHELDON :2000 A ge:24 Y S ex:Female Date:02/16/2025 Address:[address], [facility] , [id number] Subjective: * Chief Complaints: * C ounseling/Testing * Medications: T akingAviane 0.1-20 MG-MCG Tablet 1 tablet Orally Once a day valACYclovir HCl 1 GM Tablet 1 tablet Orally Once a day for five days per episode Levonorgestrel 1.5 MG Tablet as directed Orally May take upto 5 days after sex as needed MetroGel- Vaginal 0.75 % Gel 1 application at bedtime Vaginal Once a day Plan B One-Step 1.5 MG Tablet 1 tablet Orally At once Taking Aviane 0.1-20 MG-MCG Tablet 1 tablet Orally Once a day Taking valACYclovir HCl 1 GM Tablet 1 tablet Orally Once a day for five days per episode Taking Levonorgestrel 1.5 MG Tablet as directed Orally May take upto 5 days after sex as needed Taking MetroGel-Vaginal 0.75 % Gel 1 application at bedtime Vaginal Once a day Taking Plan B One-Step 1.5 MG Tablet 1 tablet Orally At once Billing Information: * Procedure Codes: * Electronic signature of LATISHA SHELDON CNM on 09/30/2025 at 02:17 PM EST Sign off status: Pending * Provider: Jossy SHELDON Date: 0 02/16/2025 Generated for Lawanda mooney/Ofelia/Liliam on: 1 12/01/2024 02:17 PM EST
--- OUTSIDE RECORDS SUMMARY | 2025-05-06 09:15 | XMS_ITS ---
Author Organization [facility] Address [address] [place] [address] Care Team Providers Care Communications Assistant Name Role Phone KATE SHELDON Unavailable [phone] REASON FOR VISIT Counseling/Testing Social History Sex Assigned At : Social History Observation Description Sex Assigned At Female Encounters Encounter Location Date Provider Diagnosis [facility] [address] [facility] [place] [id number] 10/2024 KATE SHELDON Plan Of Treatment No Information Progress Notes * Brigitte GOSS MDOB:[birth year] (25 yo F)Acc No.[id number]:05/06/2025 Progress Notes Patient: Josephine camejokavita Brigitte Ramiro Provider: Jossy SHELDON :2000 A ge:25 Y S ex:Female Date:05/06/2025 Address:[address] [place], [place] [id number] Subjective: * Chief Complaints: * C ounseling/Testing Billing Information: * Procedure Codes: * Electronic signature of LATISHA SHELDON CNM on 09/30/2025 at 02:17 PM EST Sign off status: Pending * Provider: Jossy SHELDON Date: 0 05/06/2025 Generated for Lawanda mooney/Ofelia/eTtalib on: 12/01/2024 02:17 PM EST
--- OUTSIDE RECORDS SUMMARY | 2025-09-30 14:18 | XMS_ITS | Encounter Summary ---
Author Organization [facility] Address [address] [place] [address] Phone Care Team Providers Care Cylinder Grinder Name Role Phone Sarahi Ibrahim MD Primary Care Provider [phone] Reason for Visit * Reason Comments Med Refill Encounter Details Date Type Department Care Team ([facility] st Contact Info) Description 07/08/2020 Refill [facility] [place] [address] [place] [address] Sarahi Ibrahim MD [address] [place] [address] Exercise-induced asthma Social History Tobacco Use Types [...] bronchospasm documented in this encounter Care Teams Cylinder Grinder Relationship Specialty Start Date End Date Sarahi Ibrahim MD [address] [place] [address] PCP - General Pediatrics 06/06/18 03/25/23 documented as of this encounter
--- OUTSIDE RECORDS SUMMARY | 2025-09-30 14:18 | XMS_ITS | Encounter Summary ---
Author Organization [facility] Address [address] [place] [address] Phone Care Team Providers Care Critical Care Paramedic Name Role Phone Sarahi Ibrahim MD Primary Care Provider [phone] Encounter Details Date Type Department Care Team (Late st Contact Info) Description 11/18/2016 Documentation [facility] [place] Family Medicine [address] [place], [place] [id number] Family Medicine, Physician [address] [place], [place] [address] Social History Tobacco Use Types Packs/Day Years [...] on filedocumented in this encounter Care Teams Critical Care Paramedic Relationship Specialty Start Date End Date Sarahi Ibrahim MD [address] [place] [address] PCP - General Pediatrics 06/06/18 03/25/23 documented as of this encounter
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
--- OUTSIDE RECORDS SUMMARY | 2025-09-30 14:18 | XMS_ITS | Encounter Summary ---
Author Organization [facility] Address [address] [place] [address] Phone Care Team Providers Care Corporate Sales Representative Name Role Phone Sarahi Ibrahim MD Primary Care Provider [phone] Encounter Details Date Type Department Care Team (Late st Contact Info) Description 05/22/2017 Conversion Encounter [facility] [place] [address] [place] [address] Social History Tobacco Use Types Packs/Day Years [...] on filedocumented in this encounter Care Teams Corporate Sales Representative Relationship Specialty Start Date End Date Sarahi Ibrahim MD [address] [place] [address] PCP - General Pediatrics 06/06/18 03/25/23 documented as of this encounter
--- OUTSIDE RECORDS SUMMARY | 2025-09-30 14:18 | XMS_ITS | Encounter Summary ---
Author Organization [facility] Address [address] [place] [address] Phone Care Team Providers Care Breakfast Host Name Role Phone Sarahi Ibrahim MD Primary Care Provider [phone] Encounter Details Date Type Department Care Team (Late st Contact Info) Description 11/29/2016 Documentation [facility] [place] [address] [place], [place] [phone] Family Medicine, Physician [address] [place], [place] [address] Social History Tobacco Use Types Packs/Day Years [...] on filedocumented in this encounter Care Teams Breakfast Host Relationship Specialty Start Date End Date Sarahi Ibrahim MD [address] [place] [address] PCP - General Pediatrics 06/06/18 03/25/23 documented as of this encounter
--- OUTSIDE RECORDS SUMMARY | 2025-09-30 14:18 | XMS_ITS | Clinical Summary ---
Author Organization [facility] Address [address] [place] [address] Phone Care Team Providers Care Fabric Awning Repairer Name Role Phone Unknown, Unknown MD Primary [...] topic Medical Devices Not on file Insurance [facility] Care Teams Fabric Awning Repairer Relationship Specialty Start Date End Date Unknown, Unknown, PCP - General 09/19/23 Additional Source Comments The information contained in this document represents components of the legal health record. It is not the complete legal health record.[facility]
--- OUTSIDE RECORDS SUMMARY | 2025-09-30 14:18 | XMS_ITS | Clinical Summary ---
Author Organization [employer] Address [address] [place] [address] Care Team Providers Care Maintenance Department Manager Name Role Phone JacquelineNieves maynard SUSAN Primary Care Provider [phone] Allergies No known active allergies Medications levonorgestrel (Plan B) 1.5 MG tablet Take 0.5 tablets (0.75 mg) by mouth every 12 (twelve) hours for 1 day. 1 tablet 09/09/2025 09/10/20 25 valACYclovir (Valtrex) 500 MG tablet Take 1 tablet (500 mg) by mouth 2 times daily for 9 days. 18 tablet 09/09/2025 09/18/20 25 Active Problems Problem Noted Date Diagnosed Date BMI 32.0-32.9,adult 09/09/2025 Assessment & Plan (09/09/2025 3:59 PM EST): Orders: Comprehensive Metabolic Panel; Future Hemoglobin A1c; Future Hemoglobin A1c; Future Routine general medical exam ination at a health care facility 09/09/2025 Assessment & Plan (09/09/2025 3:59 PM EST): Orders: Chlamydia/N. Gonorrhoeae, PCR, Urine hCG, Total, Quantitative; Future Hemoglobin A1c; Future Referral to [facility] Adult; Future POCT Urine Dietary counseling 09/09/2025 Assessment & Plan (09/09/2025 3:59 PM EST): Exercise counseling 09/09/2025 Assessment & Plan (09/09/2025 3:59 PM EST): HSV (herpes simplex virus) infection 09/09/2025 Assessment & Plan (09/09/2025 3:59 PM EST): Encounters Date Type Department Care Team Description 09/19/2025 Results Follow-Up [facility] [address] [place] [address] Nieves Vance NP Chlamydia/N. Gonorrhoeae, PCR, Urine, POCT Urine 09/09/2025 1:00 PM EST Office Visit [facility] [address] [place] [address] Nieves Vance NP Routine general medical examination at a health care facility (Primary Dx); BMI 32.0-32.9,adult; Dietary counseling; Exercise counseling; HSV (herpes simplex virus) infection 09/09/2025 Travel 09/08/2025 Telephone [facility] [address] [place] [address] Fei Giordano [place] CHARTPREP 08/30/2025 Patient Outreach [facility] [address] [place], [place] [phone] Nieves Vance NP Pre-visit Planning (SDOH unable to reach LVM ) from Last 3 Months Social History Tobacco [...] Description 11/22/2025 1:45 PM EST Office Visit [facility] [address] [place] [address] Nieves Vance NP [address] [place] [address] Health Maintenance Due Date Last Done Comments HIV Screening 2002 Lipid Panel 2002 Family Planning (PISQ) 2017 Hepatitis C Screening 2020 Pneumococcal Vaccine: Pediatrics (0 to 5 Years) and At-Risk Patients (6 to 49) Years (1 of 2 - PCV) 2021 06/17/2003, 2002, 2002, Additional history exists Pap Smear 2023 DTaP/Tdap/Td Vaccines (7 - Td or Tdap) 05/11/2023 05/11/2013, 05/30/2006, 09/21/2003, Additional history exists COVID-19 Vaccine ( season) 2025 04/26/2021, 04/05/2021 Influenza Vaccine (#1) 2025 9, 09/02/2018, 07/17/2017, Additional history exists Depression Monitoring 2026 09/09/2025, 025 Alcohol/Substance Use Screening 09/09/2026 09/09/2025 Chlamydia and Gonorrhea Screening 09/09/2026 09/09/2025, 06/04/2019 Disability Screening 09/09/2026 09/09/2025 SDOH Screening 09/09/2026 [...] medical examination at a health care facility CHLAMYDIA/TRICHOMON /NEISSERIA GONORRHOEAE, PCR, URINE Routine 09/09/2025 12:00 AM EST Routine general medical examination at a [...] CARE TEST ENTER/EDIT OR DERABLES Final Result * Chlamydia/N. Gonorrhoeae, PCR, Urine (09/09/2025 12:00 AM EST) CT PCR, Urine NOT DETECTED Not Detect. [facility] Comment:A not detected test result does not exclude the possibilityof infection because test results can be affected byimproper specimen collection, concurrent antibiotic therapy,or the number of organisms in the specimen which may bebelow the sensitivity of the test. As with many diagnostictests, results from the Xpert CT/NG assay should beinterpreted in conjunction with other laboratory andclinical data available to the clinician.The Xpert CT/NG assay should not be used for the evaluationof suspected sexual abuse or for other medico-legalindications. Additional testing is recommended in anycircumstance when false positive or false negative resultscould lead to adverse medical, social or psychologicalconsequences. NG PCR, Urine NOT DETECTED Not Detect. [facility] Comment:A not detected test result does not exclude the possibilityof infection because test results can be affected byimproper specimen collection, concurrent antibiotic therapy,or the number of organisms in the specimen which may bebelow the sensitivity of the test. As with many diagnostictests, results from the Xpert CT/NG assay should beinterpreted in conjunction with other laboratory andclinical data available to the clinician.The Xpert CT/NG assay should not be used for the evaluationof suspected sexual abuse or for other medico-legalindications. Additional testing is recommended in anycircumstance when false positive or false negative resultscould lead to adverse medical, social or psychologicalconsequences. Urine (Urine, Random) 09/09/2025 09/09/2025 us Nieves Vance SALES FORECAST ANALYST LAB URINE ORDERABLES Final Resul t [facility] [address] [place] [address] [phone] from Last 3 Months Insurance [facility] [facility] [address] [place] [phone] Care Teams Maintenance Department Manager Relationship Specialty Start Date End Date Nieves Vance NP [address] [place] [address] PCP - General Family Medicine 09/09/25
--- OUTSIDE RECORDS SUMMARY | 2025-09-30 14:18 | XMS_ITS | Patient Health Record ---
Author Organization [facility] Address [address] [place] [address] Care Team Providers Care Filter Tender Jelly Name Role Phone DOROTHY DEMPSEY Unavailable [phone] KATE SHELDON Unavailable [phone] Santillan, Leah Unavailable [phone] Allergies No Known Allergies Results Component Value Reference Range Flag Notes Test, Urine Reviewed date:12/29/2024 01:01:29 PM Interpretation:Negative Performing Lab: Notes/Report: Negative Test, Urine neg Lot # [id number] Exp. Date 12/20/25 NuSwab VG+, Esme 6sp-1800 68 Reviewed date:12/29/2024 11:37:34 AM Interpretation:BV Positive Performing Lab:Polly Robbins, [address] [place] [address], Phone - [phone], Director - Elvira Notes/Report: and Drug Administration. by [facility]. It has not been cleared or approved by the Food was [employer] and its performance characteristics determined 802086-Aapdecd krusei, MARQUES 182880-V parapsilosis/tropicalis; 228274-Ogspiqv lusitaniae, MARQUES; Test(s) 080014-Axgdxbr albicans, MARQUES; 730897-Bkbbvno glabrata, MARQUES; and Drug Administration. by [facility]. It has not been cleared or approved by the Food was developed and its performance characteristics determined Megasphaera 1 Test(s) 635796- Atopobium vaginae; 687532- BVAB 2; 360344- Atopobium vaginae High - 2 A BVAB 2 High - 2 A Megasphaera 1 High - 2 A Calculate total score by adding the 3 individual bacterial vaginosis (BV) marker scores together. Total score is interpreted as follows: Total score 0-1: Indicates the absence of BV. Total score 2: Indeterminate for BV. Additional clinical data should be evaluated to establish a diagnosis. Total score 3-6: Indicates the presence of BV. Esme albicans, MARQUES Negative Negative Esme glabrata, MARQUES Negative Negative C parapsilosis/tropicalis Negative Negative This assay does not differentiate C. tropicalis and C. parapsilosis. Esme lusitaniae, MARQUES Negative Negative Esme krusei, MARQUES Negative Negative Trich vag by MARQUES Negative Negative Chlamydia trachomatis, MARQUES Negative Negative Neisseria gonorrhoeae, MARQUES Negative Negative Urinalysis Reviewed date:12/29/2024 09:20:48 AM Interpretation:Blood otherwise normal Performing Lab: Notes/Report: Blood otherwise normal Leukocytes - Nitrates - Uro 3.5 Protein - pH 7.0 Blood 80 Spec [place] 1.015 Ketones - Bilirubin - Glucose - Reason For Referral No Information Medications Medication SIG (Take, Route, Frequency, Duration) Notes Start Date End Date Status Aviane 0.1-20 MG-MCG Tablet 1 tablet Orally Once a day; Duration: 84 12/25/2024 Not-Taking/P RN valACYclovir HCl 1 GM Tablet 1 tablet Orally Once a day for five days per episode; Duration: 5 days 12/25/2024 Active Levonorgestrel 1.5 MG Tablet as directed Orally May take upto 5 days after sex as needed; Duration: 1 days Active Plan B One-Step 1.5 MG Tablet 1 tablet Orally At once; Duration: 1 days 02/01/2025 Not-Taking/PRN MetroGel-Vaginal 0.75 % Gel 1 application at bedtime Vaginal Once a day; Duration: 5 day(s) 12/29/2024 Not-Taking/PRN Social History Sex Assigned At : Social History Observation Description Sex Assigned At Female Social History HIV Risk Assessment Social Info Question Answer Notes Additional Questions Is an HIV Risk Asse ssment being conducted? No Reproductive Life Plan: Social Info Question Answer Notes Reproductive Life Plan: Do you want to have chil dren? Yes, I want to have children How long would you like to wait until you/your partner becomes ? 5 - 10 years How sure are you that you will be able to use your control method without any problems? Very sure Human Trafficking: Social Info Question Answer Notes Human Trafficking Experienced: No PrEP for HIV: Social Info Question Answer Notes PrEP for HIV Is the client tone chen in beginning/continuing PrEP for HIV? No Sexual History: Social Info Question Answer Notes Sexual History: Sexual History Reviewed: Partner s, Practices, Protection/Past STIs, Prevention of Currently sexually active? Yes Sexually active with: Men Number of male partners 1 Your sexual activities include: anal intercourse, oral intercourse, vaginal intercourse Reviewed types of EC? Yes Do you use condoms? No Date of last unprotected intercourse: 02/03/2025 Number of partners in past 3 months: 3 Number of partners in past year: 4 What is the client's primary method to prevent at the end of their visit? None/No Method (Specify Reason) If none, what is the reason? Other Reason Does your partner(s) currently have any STIs? No Completed Gardasil vaccination series? No Counseling Provided: Social Info Question Answer Notes Counseling Provided Please indicate the length of time, in minutes, that counseling was provided. 5 Counseling Was Provided By: gloria Drugs/Alcohol: Social Info Question Answer Notes Drug/Alcohol Use Do you or have you used drugs? Yes, i n the past occasional use Do you or have you used alcohol? Yes, currently social use Food Access: Social Info Question Answer Notes Food Access The Client's current access to food is Secure Food Access Relationships: Social Info Question Answer Notes Relationships Has the client experienced any of the following: Client has never experienced harmful relationships DO NOT USE - Travel Plans: Social Info Question Answer Notes Travel Plans DO NOT USE - Has cli ent traveled to any Zika affected areas? Yes DO NOT USE - Has partner traveled to any Zika af fected areas? Yes DO NOT USE - Is client planning to travel to any Zika affected areas? No DO NOT USE - Is partner planning to travel to an y Zika affected areas? No Housing Social Info Question Answer Notes Housing The client's current living situation is: stable housing Tobacco Use: Social Info Question Answer Notes Tobacco Use: Do you/have you used tobacco? Yes, jazlyn cheung vape use Tobacco Smoking Status Current every day smoker Section Notes: Aptima / Declines bw Aptima/ bw Aptima only Aptima only due to insurance status \ Aptima only Aptima only social hx not reviewed today social hx not reviewed today Problems Problem Type SNOMED Code ICD Code Onset Dates Problem Status W/U Status Risk Notes Problem Genital herpes simplex (23294378) Herpes, Genital (A60.9) Active confirmed Vital Signs Blood pressure diastolic 78 mm Hg 12/27/2024 Height 5'4 in 12/27/2024 Blood pressure systolic 112 mm Hg 12/27/2024 Weight 183 lbs 12/27/2024 BMI 31.41 kg/m2 12/27/2024 Encounters Encounter Location Date Provider Diagnosis [facility] [address] [place], [place] [phone] 10/01/2024 KATE SHELDON Encounter for prescription of emergency contraception Z30.012 [facility] [address] [place], [place] [id number] 10/27/2024 KATE SHELDON Encounter for prescription of emergency contraception Z30.012 [facility] [address] [place], [place] [id number] 11/03/2024 KATE SHELDON Encounter for prescription of emergency contraception Z30.012 [facility] [address] [place], [place] [id number] 11/24/2024 KATE SHELDON Encounter for prescription of emergency contraception Z30.012 [facility] [address] [place], [place] [id number] 12/01/2024 KATE SHELDON Encounter for prescription of emergency contraception Z30.012 [facility] [address] [place], [place] [id number] 12/20/2024 KATE SHELDON [facility] [id number] 12/25/2024 KATE SHELDON Encounter for other general counseling and advice on contraception Z30.09 ; Visit for initial script of pills Z30.011 ; Counseling, unspecified Z71.9 ; Encounter for screening for infections with a predominantly sexual mode of transmission Z11.3 ; Vaginal discharge N89.8 ; Herpes, Genital A60.9 ; Urinary frequency R35.0 ; Encounter for test, result unknown Z32.00 and Acute vaginitis N76.0 [facility] [address] [place], [place] [id number] 12/27/2024 DOROTHY DEMPSEY [facility] [address] [place], [place] [id number] 12/29/2024 KATE SHELDON Vaginitis, Acute N76.0 [facility] [address] [place] [id number] 01/07/2025 KATE SHELDON Encounter for prescription of emergency contraception Z30.012 [facility] [address] [place] [id number] 02/25/2025 Leah Santillan Encounter for screening for infections with a predominantly sexual mode of transmission Z11.3 ; Counseling, unspecified Z71.9 and Other problems related to lifestyle Z72.89 [facility] [address] [id number] 12/25/2024 KATEURBAN SHELDON [facility] [address] [place] [id number] 12/29/2024 KATEURBAN SHELDON [facility] [address] [place] [id number] 01/07/2025 KATE MONALISA [facility] [address] [place] [id number] 01/19/2025 KATE NUNOY Vaginitis, Acute N76.0 [facility] [address] [place] [id number] 02/01/2025 Leah Santillan [facility] [address] [place] [id number] 04/27/2025 KATE NUNOY Encounter for prescription of emergency contraception Z30.012 Assessments Encounter Date Diagnosis (ICD Code) Assessment Notes Treatment Notes Treatment Clinical Notes Section Notes 10/01/2024 Encounter for prescription of emergency contraception (ICD-10 - Z30.012) Client counseled that there is a chance of even after treatment. Client advised to refrain from unprotected intercourse following treatment, as Emergency Contraception will not prevent during this time, and risk may be increased due to a possible delay in ovulation. If no menses occur in 4 weeks after treatment, the client should return for a test. Dispensed condoms with emergency contraception and emergency contraception information sheet 10/27/2024 Encounter for prescription of emergency contraception (ICD-10 - Z30.012) Client counseled that there is a chance of even after treatment. Client advised to refrain from unprotected intercourse following treatment, as Emergency Contraception will not prevent during this time, and risk may be increased due to a possible delay in ovulation. If no menses occur in 4 weeks after treatment, the client should return for a test. Dispensed condoms with emergency contraception and emergency contraception information sheet 11/03/2024 Encounter for prescription of emergency contraception (ICD-10 - Z30.012) Client counseled that there is a chance of even after treatment. Client advised to refrain from unprotected intercourse following treatment, as Emergency Contraception will not prevent during this time, and risk may be increased due to a possible delay in ovulation. If no menses occur in 4 weeks after treatment, the client should return for a test. Dispensed condoms with emergency contraception and emergency contraception information sheet 11/24/2024 Encounter for prescription of emergency contraception (ICD-10 - Z30.012) Client counseled that there is a chance of even after treatment. Client advised to refrain from unprotected intercourse following treatment, as Emergency Contraception will not prevent during this time, and risk may be increased due to a possible delay in ovulation. If no menses occur in 4 weeks after treatment, the client should return for a test. Dispensed condoms with emergency contraception and emergency contraception information sheet 12/01/2024 Encounter for prescription of emergency contraception (ICD-10 - Z30.012) Client counseled that there is a chance of even after treatment. Client advised to refrain from unprotected intercourse following treatment, as Emergency Contraception will not prevent during this time, and risk may be increased due to a possible delay in ovulation. If no menses occur in 4 weeks after treatment, the client should return for a test. Dispensed condoms with emergency contraception and emergency contraception information sheet 12/20/2024 Encounter for prescription of emergency contraception (ICD-10 - Z30.012) Client counseled that there is a chance of even after treatment. Client advised to refrain from unprotected intercourse following treatment, as Emergency Contraception will not prevent during this time, and risk may be increased due to a possible delay in ovulation. If no menses occur in 4 weeks after treatment, the client should return for a test. Dispensed condoms with emergency contraception and emergency contraception information sheet 12/25/2024 Encounter for other general counseling and advice on contraception (ICD-10 - Z30.09) Need 2 out of 3 Sections from A-C Section A) Problems (only need one from below) Section B) Data (need at least one of the following categories in this section) Category 1: (Choose three of the following): Order Unique tests Section C) Risk (any one of the following) Prescription drug management (this counts for the whole section) 12/25/2024 Visit for initial script of pills (ICD-10 - Z30.011) Discussed control options. No CI's to CHCs. Reviewed benefits, risks and ACHES. May quick start with BUM x 7 days FOR BP CHECK WITH LABS HOWEVER, OK TO START PRIOR TO BP CHECK BP IN MAY WNL Need 2 out of 3 Sections from A-C Section A) Problems (only need one from below) Section B) Data (need at least one of the following categories in this section) Category 1: (Choose three of the following): Order Unique tests Section C) Risk (any one of the following) Prescription drug management (this counts for the whole section) 12/29/2024 Vaginitis, Acute (ICD-10 - N76.0) Reviewed BV findings and treatment options. No sexual activity during treatment and condom/barrier use encouraged following for at least a month for prevention. Briefly reviewed recurrent BV and partner tx- will defer for now. If recurrent BV with same partner then may want to consider partner tx Spent 15 minutes doing the following: Chart Prep Obtaining/rev iewing history Counseling/Co ordination of Care Documenting the visit Educating the patient Ordering medication/te st/procedures Established Patient: [id number] 10 Minutes 01/07/2025 Encounter for prescription of emergency contraception (ICD-10 - Z30.012) Client counseled that there is a chance of even after treatment. Client advised to refrain from unprotected intercourse following treatment, as Emergency Contraception will not prevent during this time, and risk may be increased due to a possible delay in ovulation. If no menses occur in 4 weeks after treatment, the client should return for a test. Dispensed condoms with emergency contraception and emergency contraception information sheet 01/07/2025 Encounter for prescription of emergency contraception (ICD-10 - Z30.012) 01/19/2025 Vaginitis, Acute (ICD-10 - N76.0) 02/25/2025 Encounter for screening for infections with a predominantly sexual mode of transmission (ICD-10 - Z11.3) Discussed STI risks, screenings that are available through [facility] and safe sex. Clt aware of lab processing times and how to view results on portal and how positive results will be communicated. Encouraged to make in-person appt for evlif BV sxs return. GC/CT/T-anal, oral and urine testing requested. All questions and concerns addressed. RTC for testing within the week. Spent 10 minutes doing the following: Chart Prep Obtaining/rev iewing history Counseling/Co ordination of Care Documenting the visit Educating the patient Ordering medication/te st/procedures Established Patient: [id number] 10 Minutes 04/27/2025 Encounter for prescription of emergency contraception (ICD-10 - Z30.012) 02/25/2025 Counseling, unspecified (ICD-10 - Z71.9) Spent 10 minutes doing the following: Chart Prep Obtaining/rev iewing history Counseling/Co ordination of Care Documenting the visit Educating the patient Ordering medication/te st/procedures Established Patient: [id number] 10 Minutes 12/25/2024 Counseling, unspecified (ICD-10 - Z71.9) Need 2 out of 3 Sections from A-C Section A) Problems (only need one from below) Section B) Data (need at least one of the following categories in this section) Category 1: (Choose three of the following): Order Unique tests Section C) Risk (any one of the following) Prescription drug management (this counts for the whole section) 12/25/2024 Encounter for screening for infections with a predominantly sexual mode of transmission (ICD-10 - Z11.3) Discussed STI risks, screenings that are available through [facility] and safe sex. Clt aware of lab processing times and how to view results on portal and how positive results will be communicated Need 2 out of 3 Sections from A-C Section A) Problems (only need one from below) Section B) Data (need at least one of the following categories in this section) Category 1: (Choose three of the following): Order Unique tests Section C) Risk (any one of the following) Prescription drug management (this counts for the whole section) 02/25/2025 Other problems related to lifestyle (ICD-10 - Z72.89) Spent 10 minutes doing the following: Chart Prep Obtaining/rev iewing history Counseling/Co ordination of Care Documenting the visit Educating the patient Ordering medication/te st/procedures Established Patient: [id number] 10 Minutes 12/25/2024 Vaginal discharge (ICD-10 - N89.8) Will further evaluate current symptoms with vag plus swab and UA. Recommend clt start on HSV outbreak medication in case start of outbreak as well. Lab collection Tim 6pm in [place] Need 2 out of 3 Sections from A-C Section A) Problems (only need one from below) Section B) Data (need at least one of the following categories in this section) Category 1: (Choose three of the following): Order Unique tests Section C) Risk (any one of the following) Prescription drug management (this counts for the whole section) 12/25/2024 Herpes, Genital (ICD-10 - A60.9) Need 2 out of 3 Sections from A-C Section A) Problems (only need one from below) Section B) Data (need at least one of the following categories in this section) Category 1: (Choose three of the following): Order Unique tests Section C) Risk (any one of the following) Prescription drug management (this counts for the whole section) 12/25/2024 Urinary frequency (ICD-10 - R35.0) Need 2 out of 3 Sections from A-C Section A) Problems (only need one from below) Section B) Data (need at least one of the following categories in this section) Category 1: (Choose three of the following): Order Unique tests Section C) Risk (any one of the following) Prescription drug management (this counts for the whole section) 12/25/2024 Encounter for test, result unknown (ICD-10 - Z32.00) Need 2 out of 3 Sections from A-C Section A) Problems (only need one from below) Section B) Data (need at least one of the following categories in this section) Category 1: (Choose three of the following): Order Unique tests Section C) Risk (any one of the following) Prescription drug management (this counts for the whole section) 12/25/2024 Acute vaginitis (ICD-10 - N76.0) Need 2 out of 3 Sections from A-C Section A) Problems (only need one from below) Section B) Data (need at least one of the following categories in this section) Category 1: (Choose three of the following): Order Unique tests Section C) Risk (any one of the following) Prescription drug management (this counts for the whole section) 11/03/2024 Other Discussed STI risks, screening, and safe sex 01/07/2025 Other Discussed STI risks, screening, and safe sex 12/20/2024 Other Discussed STI risks, screening, and safe sex 12/01/2024 Other Discussed STI risks, screening, and safe sex 11/24/2024 Other Discussed STI risks, screening, and safe sex 10/27/2024 Other Discussed STI risks, screening, and safe sex 10/01/2024 Other Discussed STI risks, screening, and safe sex Plan Of Treatment No Information Insurance Providers Payer Name Payer Address Payer Phone Subscriber Number Group Number Insured Name Patient Relationship to Insured Coverage Start Date Coverage End Date [facility] [address] [address] [place], [place] [phone] [id number] Goss , Brigitte Self - patient is the insured Medications Administered Medication Instructions Date of Administration Dosage Notes Lidocaine 1% 05/15/2020 1.5 mL Depo SubQ 104 mg 10/13/2020 104 mg Depo SubQ 104 mg 01/05/2021 104 mg Depo 150mg 03/30/2021 150 mL Depo 150mg 06/25/2021 Depo 150mg 09/19/2021 Depo 150mg 12/14/2021 Depo 150mg 08/16/2022 Depo 150mg 11/11/2022 150 mg Depo 150mg 02/03/2023 Depo 150mg 04/30/2023 Depo 150mg 07/25/2023 Depo 150mg 10/22/2023 Depo 150mg 01/16/2024 Medroxyprogesterone Acetate 04/21/2024 150 mg Medical (General) History Medical History History ICD Code UTI BV herpes 1 genital 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
[2025-09-30 16:49] LABS: Alanine Aminotransferase 30 U/L (0-31); Albumin Level 4.4 g/dL (3.5-5.0); Alkaline Phosphatase 94 U/L (39-117); Anion Gap 11 (12-20); Aspartate Amino Transferase 28 U/L (5-31); Blood Urea Nitrogen 9 mg/dL (9-16); Calcium 9.0 mg/dL (8.4-10.2); Carbon Dioxide 25 mmol/L (22-29); Chloride 106 mmol/L (96-108); Estimated Glomerular Filt Rate > 60; Potassium 4.0 mmol/L (3.3-5.1); Sodium 138 mmol/L (135-145); Total Protein 7.2 g/dL (6.5-8.0)
== END 2025-09-30 14:16 | disposition home or self-care (01) ==
LOC: HO.LAB 14:15
PROVIDERS: PCP Nurse Practitioner Family; Visit Provider Nurse Practitioner Family
DX: Z00.00 Encounter for general adult medical examination without abnormal findings (principal); Z68.32 Body mass index [BMI] 32.0-32.9, adult
CPT/HCPCS: 36415; 80053; 83036; 84702